=== PATIENT | female | born 1960 | race Hispanic/Latino ===

== ENCOUNTER 2023-05-10 09:28 | Outpatient (CLI) | payer BC | END 2023-05-10 09:29 | disposition home or self-care (01) | LOC: CSHRAD 09:28 | PROVIDERS: ATTEND Physician Assistant Surgical | DX: M47.12 Other spondylosis with myelopathy, cervical region (principal); Z98.890 Other specified postprocedural states | CPT/HCPCS: 72040 ==

== ENCOUNTER 2024-05-24 12:57 | Outpatient (CLI) | payer BC ==
[2024-05-24 14:59] LABS: Hematocrit 41.9 % (34.9-44.5); Hemoglobin 14.9 g/dL (12.0-15.5); Mean Corpuscular HGB CONC 35.6 g/dL (32.0-36.0); Mean Corpuscular Hemoglobin 29.2 pg (27.0-33.0); Mean Platelet Volume 9.6 fL (7.4-10.4); Platelet Count 235 10x3/uL (150-450); RBC Distribution Width 15.6 % (11.5-14.5); Red Blood Cell (RBC) Count 5.11 10x6/uL (3.90-5.03); White Blood Cell (WBC) Count 8.82 10x3/uL (3.5-10.5)
[2024-05-24 15:16] LABS: Anion Gap 11 mmol/L (10-20); BUN (Urea Nitrogen) 9 mg/dL (9.8-20.1); Calc. Creatinine Clearance 0 mL/min (70-130); Calcium 8.7 mg/dL (7.8-10.44); Carbon Dioxide 25 mmol/L (23-31); Chloride 110 mmol/L (98-107); Estimated GFR 66; Glucose 198 mg/dL (80-115); Potassium 3.8 mmol/L (3.5-5.1); Sodium 142 mmol/L (136-145)
== END 2024-05-24 12:58 | disposition home or self-care (01) ==
LOC: CSHLAB 12:57
PROVIDERS: ATTEND Otolaryngology
DX: Z01.818 Encounter for other preprocedural examination (principal); M31.6 Other giant cell arteritis
CPT/HCPCS: 80048; 85027; 93005; 93010

== ENCOUNTER 2024-05-27 06:59 | Day surgery (SDC) | payer BC ==
[2024-05-24 14:15] VITALS: BMI 37.9
[2024-05-27] MEDS ORDERED: Insulin Regular, Human 100 UNIT/ML 10 ML VIAL ONE (07:54)
[2024-05-27] MEDS ORDERED: Lidocaine 1% (PF) 30 ML VIAL ONE (08:23)
[2024-05-27] MEDS ORDERED: EPINEPHrine 1 MG/ML VIAL ONE (08:23)
[2024-05-27] MEDS ORDERED: Ondansetron PF 4 MG/2 ML Vial ONE (08:26)
[2024-05-27] MEDS ORDERED: fentaNYL 50 mcg/mL 1 mL Vial ONE (08:26)
[2024-05-27] MEDS ORDERED: Glycopyrrolate 0.2 MG/ML 5 ML SYRINGE ONE (08:26)
[2024-05-27] MEDS ORDERED: Dexamethasone 4 mg/ml Vial ONE (08:26)
[2024-05-27] MEDS ORDERED: Lidocaine 1% PF 5 ML VIAL ONE (08:26)
[2024-05-27] MEDS ORDERED: PROPOFOL 20 ML ONE (08:26)
[2024-05-27] MEDS ORDERED: Midazolam HCl 2 mg/2 ml Vial ONE (08:27)
[2024-05-27] MEDS ORDERED: CEFAZOLIN 2 GM VIAL ONE (08:35)
[2024-05-27] MEDS ORDERED: PHENYLEPHRINE-NS 100 MCG/ML 10 ML SYRINGE ONE (09:13)
[2024-05-27] MEDS ORDERED: Mupirocin 2% Ointment 22 GM Tube ONE (09:40)
[2024-05-27] MEDS ORDERED: HYDROcodone/Acetaminophen 5/325 mg Tablet ONE (10:55)
== END 2024-05-27 11:23 | disposition home or self-care (01) ==
LOC: CSHSDC 06:59
PROVIDERS: ATTEND Otolaryngology
PROC: 03BS0ZX Excision of Right Temporal Artery, Open Approach, Diagnostic (ICD-10-PCS; principal; 2024-05-27)
DX: I77.3 Arterial fibromuscular dysplasia (principal); M31.6 Other giant cell arteritis; I10 Essential (primary) hypertension; I25.10 Atherosclerotic heart disease of native coronary artery without angina pectoris; E11.9 Type 2 diabetes mellitus without complications; E78.00 Pure hypercholesterolemia, unspecified; E66.9 Obesity, unspecified; F32.A Depression, unspecified; F41.9 Anxiety disorder, unspecified; G47.33 Obstructive sleep apnea (adult) (pediatric); Z68.38 Body mass index [BMI] 38.0-38.9, adult; Z90.49 Acquired absence of other specified parts of digestive tract; Z88.0 Allergy status to penicillin; Z79.82 Long term (current) use of aspirin; Z79.85 Long-term (current) use of injectable non-insulin antidiabetic drugs; Z79.84 Long term (current) use of oral hypoglycemic drugs; Z79.899 Other long term (current) drug therapy
CPT/HCPCS: 36416; 88305; J0171; J1100; J1815; J2250; J2405; J2704; J3010